=== PATIENT | female | born 1985 | race Caucasian/White ===

== ENCOUNTER → 2021-01-09 08:52 | Outpatient (CLI) | payer MEDICAID, SELFPAY ==
--- NOTE | 2021-01-09 09:20 | RAD_ITS ---
STUDY: X-RAY - LUMBAR SPINE REASON FOR EXAM: Female, 36 years old. BACK PAIN TECHNIQUE: 2 view(s) of the lumbar spine were obtained. COMPARISON: None FINDINGS: Normal lumbar lordosis. There is a minimal levoscoliosis of the lumbar spine. There is a normal alignment of the vertebrae. Normal vertebral bodies and endplates. Normal disc space heights. The soft tissue structures are unremarkable. RAD/Lumbar Spine 2 or 3 Views IMPRESSION: Minimal levoscoliosis. Electronically Signed: Michael Adame MD at 15:02 EDT , Service support ,
[2021-01-09 11:54] LABS: Absolute Lymphocyte Count 2.21 X10^3/uL (0.83-4.51); Absolute Neutrophil Count 3.7 X10^3/uL (2.0-7.7); Basophil# 0.04 X10^3/uL; Basophil% 0.6 % (0-1); Eosinophil# 0.11 X10^3/uL; Eosinophils% 1.7 % (0-5); Hematocrit 39.1 % (37-47); Hemoglobin 12.3 g/dL (12.0-15.0); Lymphocyte # 2.21 X10^3/ul (0.83-4.51); Lymphocyte % 33.7 % (19-41); Mean Corp Hgb Conc 31.5 g/dL (32-36); Mean Corpuscular Hgb 31.3 pg (27.0-32.0); Mean Corpuscular Volume 99.5 fL (81-99); Mean Platelet Vol. 10.1 fl (6.2-12.0); Monocyte# 0.52 X10^3/uL; Monocyte% 7.9 % (0-10); NRBC Flagged by Analyzer 0 % (0-5); Neutrophil # 3.65 X10^3/uL (2.7-7.7); Neutrophil % 55.8 % (47-70); Platelet Count 269 K/mm3 (150-450); RBC Distribution Width CV 13.1 % (11.6-14.6); RBC Distribution Width SD 48.6 fl (35.1-43.9); Red Blood Count 3.93 M/mm3 (4.2-5.4); White Blood Count 6.6 K/mm3 (4.4-11.0)
[2021-01-09 12:38] LABS: AST(SGOT) 16 U/L (15-37); Alanine Aminotransfer ALT/SGPT 18 U/L (13-56); Albumin, Serum 3.8 g/dL (3.2-5.0); Alkaline Phosphatase 42 U/L (45-117); Anion Gap 6 (5-15); BUN 19 mg/dL (7-18); BUN/Creat Ratio 18.3 RATIO (10-20); Calcium,Total 9.3 mg/dL (8.5-10.1); Chloride 107 mmol/L (98-107); Cholesterol 228 mg/dL (200); Creatinine, Serum 1.04 mg/dL (0.55-1.02); EST Glomerular Filtration Rate 63 mL/min (>60); Est Glom Filt Rate - Afr Amer 76 mL/min (>60); Glucose 53 mg/dL (74-106); High Density Lipoprotein 71 mg/dL; Potassium 3.5 mmol/L (3.5-5.1); Protein, Total 7.8 g/dL (6.4-8.2); Sodium Level 142 mmol/L (136-145); Triglycerides 108 mg/dL; Very Low Density Lipoprotein 22 mg/dL (5-40)
== END ==
PROVIDERS: PCP Internal Medicine; Referring Provider Internal Medicine; Visit Provider Internal Medicine
DX: E03.9 Hypothyroidism, unspecified (principal); G89.29 Other chronic pain; M54.5 Low back pain
CPT/HCPCS: 36415; 72100; 80053; 80061; 84443; 85025

== ENCOUNTER 2021-02-03 22:10 | Emergency (ER) | payer MEDICAID, SELFPAY ==
[2021-02-03 22:10] VITALS: BP 138/73; PULSE 69; RESP 16; TEMP 36.7; O2SAT 100; BMI 36.1
[2021-02-04 00:48] LABS: Mucous, Urine 0 SEEN /hpf (<or=2+)
[2021-02-04 01:00] LABS: Color, Urine Yellow (Yellow); Glucose, Dipstick Normal (Normal); Ketone-Dipstick Negative (Negative); Leukocyte Esterase-Dipstick 25 /ul (Negative); Nitrite-Dipstick Negative (Negative); Occult Blood-Urine 25 /ul (Negative); Protein-Dipstick Negative (Negative); Urine Bilirubin Dipstick Negative (Negative); Urine Clarity Clear (Clear); Urine Urobilinogen Normal (Normal)
[2021-02-04 01:07] LABS: Bacteria 1+ /hpf (None Seen); Red Blood Cells-Urine 0-5 SEEN /hpf (0-5); Squamous Epithelial Cells - UA 0-5 SEEN /hpf (5-10); White Blood Cells 0-5 SEEN /hpf (0-5)
[2021-02-04 01:40] VITALS: RESP 16
--- NOTE | 2021-02-04 06:27 | EDS_ITS ---
HPI HPI - Female History of Present Illness Chief Complaint: Vag Bleeding Informant: patient Pain Pain: Negative for Pelvic Pain Bleeding Issue: Positive for Vaginal bleeding Onset: Today Narrative Narrative: Patient presents due to concern for vaginal bleeding. Patient states when she got home from work today she noted some blood in her underwear and believes it was coming from her vaginal area. She had a hysterectomy performed 4 years ago. She denies any dysuria or obvious hematuria. No rectal pain or previous hemorrhoids. Patient does state that she has not had a pelvic examination performed since she had her hysterectomy. PFSH PFSH Medical History Chronic back pain Hypothyroidism Home Medications levothyroxine 125 mcg capsule 125 mcg PO DAILY 01/09/21 [History Last Taken Unknown] Allergy/AdvReac Type Severity Reaction Status Date / Time cortisone Allergy Mild Hives Verified 02/03/21 22:10 Family History Other Diabetes Heart disease Hypertension Surgical History H/O: hysterectomy Social History Smoking Status: Current some day smoker tobacco type: cigarettes alcohol intake: current alcohol intake frequency: holidays/special occasions only substance use type: does not use ROS ROS ED Constitutional Constitutional ED: Denies chills or fever(s) Eyes Eyes: Denies change in vision ENT ENT ED: Denies sore throat Cardiovascular Cardiovascular: Denies chest pain Respiratory/Chest Respiratory/Chest: Denies cough or dyspnea Gastrointestinal Gastrointestinal: Denies abdominal pain, diarrhea, nausea or vomiting Genitourinary Genitourinary ED: Denies dysuria Musculoskeletal Musculoskeletal: Denies back pain Integumentary Denies rash Neurologic Neurologic: Denies headache(s) or weakness Psychiatric Psychiatric: Denies anxiety or depression Endocrine Endocrinology: Denies polydipsia or polyuria Allergic/Immunologic Allergic/Immunologic ED: Denies urticaria EXAM Physical Exam Const Vital Signs: 02/03/21 22:10 02/04/21 01:40 Temperature 98.0 F Temperature Source Temporal Pulse Rate 69 Respiratory Rate 16 16 Blood Pressure 138/73 H Blood Pressure Mean 94 Pulse Ox 100 Oxygen Delivery Method Room Air Positive well nourished and well developed General Appearance ED: well developed HEENT Reports normocephalic and head/scalp atraumatic Eyes PERRL and EOMs intact bilaterally Neck supple Chest Wall inspection of chest normal and palpation of chest normal Resp normal respiratory effort and clear to auscultation bilaterally Cardio regular rate and regular rhythm GI normal to inspection, nondistended, normoactive bowel sounds Palpation: soft Narrative: No external vaginal lesions noted. Speculum examination reveals no lesions in the vagina. No evidence of blood. No evidence of hemorrhoids or blood around the rectum. Back/Spine no CVA tenderness Extremity normal to inspection Neuro oriented x3 and no sensory deficits noted Sensorium / Orientation: alert Motor Exam: strength 5/5 throughout Psych mental status grossly normal Skin no rashes or lesions noted MDM MDM MDM Narrative Medical decision making narrative: Urinalysis is obtained. Lab Data Labs: Laboratory Results - last 24 hr 02/03/21 00:40 Urine Color Yellow Urine Clarity Clear Urine pH 6.0 Ur Specific [place] 1.020 Urine Protein Negative Urine Glucose (UA) Normal Urine Ketones Negative Urine Occult Blood 25 H Urine Nitrite Negative Urine Bilirubin Negative Urine Urobilinogen Normal Ur Leukocyte Esterase 25 H Urine RBC 0-5 SEEN Urine WBC 0-5 SEEN Ur Squamous Epith Cells 0-5 SEEN Urine Bacteria 1+ Urine Mucus 0 SEEN Treatment and Re-Evaluation Comments:: Pelvic examination does not reveal evidence of bleeding at this time. Urinalysis reveals no obvious blood. Patient is referred to PHYSICAL SCIENCES INSTRUCTOR for follow-up. Discharge Plan Triage Chief Complaint: Vag Bleeding ED Provider: Ina Echols Dx/Rx/DC Orders Clinical Impression: No problem, feared complaint unfounded, Vaginal bleeding Prescriptions: No Action levothyroxine 125 mcg capsule 125 mcg PO DAILY RF: 0 Primary Care Provider: Sissy Garcia Referrals: Cherry Torres MD [STAFF PHYSICIAN] - As Needed Sissy Garcia MD [Primary Care Provider] - Activity Restrictions/Additional Instructions: As discussed, on examination there is no obvious source of bleeding. I do recommend following up with a PHYSICAL SCIENCES INSTRUCTOR for evaluation. Please monitor your symptoms and return for worsened symptoms or concerns. Disposition Disposition: Home, Self Care Discharge Date/Time: 02/04/21 01:40
== END 2021-02-04 01:40 | disposition home or self-care (01) ==
PROVIDERS: Emergency Provider Emergency Medicine; PCP Internal Medicine
DX: N93.9 Abnormal uterine and vaginal bleeding, unspecified (principal); E03.9 Hypothyroidism, unspecified; F17.210 Nicotine dependence, cigarettes, uncomplicated; Z79.899 Other long term (current) drug therapy
CPT/HCPCS: 81001; 99282

== ENCOUNTER 2021-03-09 07:00 | Outpatient (RCR) | payer MEDICAID, SELFPAY ==
--- NOTE | 2021-01-19 12:42 | HP.PTEVAL ---
Patient's Visit Information SAUL COKER is a 36 year old F referred to Physical Therapy by Dr. Sissy Garcia MD with a diagnosis of DORSALGIA,CHRONIC PAIN. Date of Evaluation: 01/18/21 Physical Therapist: Virgilio Frias, PT, Cert MDT, OCS - Visit Plan Frequency: 2x /Week Duration: 4 Weeks Plan: PT INTERVETIONS DLS,POSTURAL EX'S ,LUIS ALBERTO EX'S AND MODALTIES NEEDED ,PATIENT EDEUCATION WITH POSTURE AND BODY MCHANICS - Subjective This 36 y/o female presents to physical therapy with back pain. Patient has had lumbar pain several years but has worsen past several months. Patient noticed increase lumbar pain symmetrical R > L described as ache/sharp. Seen DR did x-rays -. Recommended PT. Aggravating factors work demands bending ,lifting ,standing with job demands. Alleviating factors rest. Denies parathesia/tinglng. Coughing/sneezing-. Bowel/bladder -. Patient pain affects sleeping. Patient pain affects job demands and ADL'S . Patient has no trauma/accidents. Patient goal to decrease back pain. SOCIAL: single. VOCATION: [employer] - Pain Bilateral Back Pain Intensity (Out of 10): 10 Pain Intensity Range: 10 Comment: worst with activity - Objective POSTURE: mild forward posture. GAIT: reciprocal pattern. PALPATION: unremarkable. SYMMTRIES: align. FLEXABLITY: hams mild tight. MMT: quads/hams 4/5,hip flexion 4-/5,ankle 4/5. LUMBAR ROM: flexion WFL, extension min loss ,side glides min loss - Special Tests L/S Slump test left side: Negative L/S Slump test right side: Negative L/S Left Straight Leg Raise: Negative L/S Right Straight Leg Raise: Negative Lumbar Standing: Flexion - Mechanical Response: No effect Lumbar Standing: Flexion - Symptoms During Testing: Increases Lumbar Standing: Flexion - Symptoms After Testing: No worse Lumbar Standing: Extension - Mechanical Response: No effect Lumbar Standing: Extension - Symptoms During Testing: Increases Lumbar Standing: Extension - Symptoms After Testing: No worse Lumbar Standing: Right Side Glides - Mechanical Response: No effect Lumbar Standing: Right Side [place] - Symptoms During Testing: No effect Lumbar Standing: Right Side [place] - Symptoms After Testing: No effect Lumbar Standing: Left Side [place] - Mechanical Response: No effect Lumbar Standing: Left Side [place] - Symptoms During Testing: No effect Lumbar Standing: Left Side [place] - Symptoms After Testing: No effect Lumbar Lying: Flexion - Mechanical Response: No effect Lumbar Lying: Flexion - Symptoms During Testing: No effect Lumbar Lying: Flexion - Symptoms After Testing: No effect Lumbar Lying: Extension - Mechanical Response: No effect Lumbar Lying: Extension - Symptoms During Testing: Increases Lumbar Lying: Extension - Symptoms After Testing: No worse - Goals Goal 1:: I with HEP Goal Time Frame: 4-6 Weeks Goal 2:: Improve posture/body mechanics for job demands Goal Time Frame: 4-6 Weeks Goal 3:: Decrease pain in right lumbar by 50% or > to improve function and ADLS Goal Time Frame: 4-6 Weeks Goal 4:: Patient improve lumbar ROM for function of reovery Goal Time Frame: 4-6 Weeks Goal 5:: Patient to increase back owestry by 5 point > to improve QOL and RTW. Goal Time Frame: 4-6 Weeks - Rehabilitation Potential Physical Therapy Diagnosis: This patient has right lumbar pain with possible derangement worse with test movement ,and job demands and faulty body mechanics thus benefit skilled PT Rehabilitation Potential: Good - Anticipated Interventions Patient/Client Instruction: Educate patient on: Condition, Plan of Care For the Purpose of:: To decrease pain, To increase ROM, To improve muscle performance and motor function, To improve ability to perform ADL's, To increase tolerance to activity/condition/position, To improve ability of physical actions for home/community/work/leisure, To improve health of tissue, To decrease soft tissue restriction, To increase flexibility/ROM, To reduce risk of recurrence, To improve health and function, To improve ability to perform tasks related to life management Therapeutic Exercise to Include: Strength training, Postural training, Flexibilty training, Passive ROM, Active ROM, Dynamic Lumbar Stabilization, Luis Alberto Exercises For the Purpose of:: To decrease pain, To increase ROM, To improve muscle performance and motor function, To improve ability to perform ADL's, To increase tolerance to activity/condition/position, To improve performance and independence with ADL's, To improve ability of physical actions for home/community/work/leisure, To improve health of tissue, To decrease soft tissue restriction, To increase flexibility/ROM, To improve ability to perform tasks related to life management TENS: Yes IF ES: Yes Cryotherapy (ice pack, ice massage): Yes Thermo therapy (hot pack): Yes Ultrasound (thermal/non thermal): Yes For the Purpose of:: To decrease pain, To improve nutrient delivery to tissue, To increase oxygenation perfusion, To improve gait and locomotor functions, To decrease soft tissue restriction Thank you for the opportunity to evaluate your patient. For Medicare and Medicare HMO plans, please review the plan of care and approve it. It will need to be FAXED BACK to us at [phone] for Medicare purposes. For Medicare only, by signing this I certify the plan of care. Please let me know if there are questions or concerns regarding this plan of care. Physician Signature: Date:
--- NOTE | 2021-05-17 12:11 | HP.PTDCSUM ---
It has been my pleasure to treat SAUL COKER referred by Dr. Sissy Garcia MD, with the diagnosis of DORSALGIA,CHRONIC PAIN for a total of 9 visit(s). Discharge Date: Please see the following information for a summary of their discharge status. Subjective: Patient reports pain is not much better. working 12 hrs makes symptoms worse. RTD Bilateral Back Pain Intensity (Out of 10): 4 % Improvement: 30 Objective/Function: POSTURE: WFL. GAIT : RECIPROCAL PATTERN. PLAPATION: TENDER RIGHT LS. SYMMTRIES: ALIGN. MMT: QUADS/HAMS 4/5,HIP FLEXION 4-/5,ANKLE 5/5. LUMBAR ROM: FLEXION WFL,EXTENSION MIN/MOD LOSS ,SIDE GLIDES Goal 1:: I with HEP Goal 2:: Improve posture/body mechanics for job demands Goal 3:: Decrease pain in right lumbar by 50% or > to improve function and ADLS Goal 4:: Patient improve lumbar ROM for function of reovery Goal 5:: Patient to increase back owestry by 5 point > to improve QOL and RTW. Plan: RTD. PT INTERVENTIONS DLS,POSTURAL EX'S ,LUIS ALBERTO EX'S AND MODALTIES NEEDED ,PATIENT EDUCATION WITH POSTURE AND BODY MECHANICS If there are questions or concerns regarding this patient's physical therapy, please feel free to call me at [phone]. Thank you for the referral of this patient. Sincerely, Virgilio Frias, PT, Cert MDT, OCS Balance/Gait/Functional tests - Balance/Special Test Scores Oswestry Low Back Score: 21
== END 2021-03-09 19:00 | disposition home or self-care (01) ==
LOC: PT 07:00
PROVIDERS: PCP Internal Medicine; Referring Provider Internal Medicine; Visit Provider Internal Medicine
DX: M54.9 Dorsalgia, unspecified (principal); G89.29 Other chronic pain
CPT/HCPCS: 97014; 97110; 97162; 97530; G0283

== ENCOUNTER → 2021-04-24 10:13 | Outpatient (CLI) | payer MEDICAID, SELFPAY | PROVIDERS: PCP Internal Medicine; Referring Provider Internal Medicine; Visit Provider Internal Medicine | DX: E03.9 Hypothyroidism, unspecified (principal) | CPT/HCPCS: 36415; 84443 ==

== ENCOUNTER → 2021-05-16 06:27 | Outpatient (CLI) | payer MEDICAID, SELFPAY ==
--- NOTE | 2021-05-16 06:28 | MRI_ITS ---
STUDY: MRI LUMBAR SPINE WITHOUT CONTRAST REASON FOR EXAM: Female, 36 years old. Chronic Back Pain TECHNIQUE: Standardized fat and water weighted pulse sequences were obtained in the sagittal and axial planes. COMPARISON: None FINDINGS: T12-L1: Normal endplates. Normal disc height, hydration and morphology. Normal bilateral facet joints. Normal central canal and bilateral lateral recesses. Normal bilateral intervertebral neural foramina. Normal lumbar lordosis. Mild levoscoliosis centered at L3. Normal conus medullaris that terminates at the T12/L1. L1-2: Mild bilateral facet hypertrophy with fluid in the facet joints consistent with instability and mild ligament flavum hypertrophy. 2 mm retrolisthesis of L1 on L2 with a mild bilobed disc protrusion produces moderate spinal stenosis with mild bilateral neural foraminal stenosis. L2-3: Normal endplates. Normal disc height, hydration and morphology. Normal bilateral facet joints. Normal central canal and bilateral lateral recesses. Normal bilateral intervertebral neural foramina. L3-4: Mild disc desiccation but no disc protrusion, spinal stenosis, or neural foraminal stenosis. L4-5: Normal endplates. Normal disc height, hydration and morphology. Normal bilateral facet joints. Normal central canal and bilateral lateral recesses. Normal bilateral intervertebral neural foramina. L5-S1: Mild broad disc protrusion produces mild spinal stenosis and mild bilateral neural foraminal stenosis. Normal visualized sacral ala. Normal visualized paraspinous soft tissue structures. MRI/Spine Lumbar (Routine) IMPRESSION: Mild levoscoliosis and degenerative disc disease as described above. Electronically Signed: Bala Cook MD at 13:49 EDT Tel , Service support ,
== END ==
PROVIDERS: PCP Internal Medicine; Referring Provider Internal Medicine; Visit Provider Internal Medicine
DX: M54.9 Dorsalgia, unspecified (principal); G89.29 Other chronic pain
CPT/HCPCS: 72148

== ENCOUNTER 2021-06-21 08:54 | Outpatient (RCR) | payer MEDICAID, SELFPAY ==
--- NOTE | 2021-06-27 16:08 | HP.FCE ---
Floor (Occasional 1-33% of Day): 35# Floor (Frequent 34-66% of Day): 18# Floor (Constant 67-100% of Day): 7# Floor PDL: Light-Medium Knee (Occasional 1-33% of Day): 35# Knee (Frequent 34-66% of Day): 18# Knee (Constant 67-100% of Day): 7# Knee PDL: Light-Medium Waist (Occasional 1-33% of Day): 30 Waist (Frequent 34-66% of Day): 15# Waist (Constant 67-100% of Day): NA Waist PDL: Light Shoulder (Occasional 1-33% of Day): 30# Shoulder (Frequent 34-66% of Day): 15# Shoulder (Constant 67-100% of Day): NA Shoulder PDL: Light Overhead (Occasional 1-33% of Day): 15# Overhead (Frequent 34-66% of Day): 8# Overhead (Constant 67-100% of Day): NA Overhead PDL: Sedentary-Light Bending: Frequent Ability (34-66% of day) Squatting: Frequent Ability (34-66% of day) Comments: with use of external support Kneeling: Occasional Ability (1-33% of day) Comments: with external support Reaching out: Frequent Ability (34-66% of day) Reaching up: Frequent Ability (34-66% of day) Sitting: Frequent Ability (34-66% of day) Walking: Frequent Ability (34-66% of day) Standing: Frequent Ability (34-66% of day) Duration Sedentary Sedentary Light Light Light Medium Medium Medium Heavy Very Heavy Heavy Occasional (0-33% of day) Frequent (34-66% of day) Constant (67-100% of day) 10 # Negligible Negligible 15 # 8 # Negligible 20 # 10# Negli. 35 # 18 # 7 # 50 # 25 # 10 # 75 # 100 # >100 # 38 # 50 # >50 # 15 # 20 # >20 # Weight:: 93.894 kg Hand Dominance: Left Medical History Including Restrictions: pt states she was in good health until 2019 pt states she went to see and pt had MRI. PT states she did have 13 Physical therapy but was not successful in decreasing her pain. Pt states she was advised by her pain mtg. Dr. Marcus to stop the therapy. Pt states she has had one pain injection about two weeks ago. pt states she feels the injection did help about 60%. pt does not exercise on a regular basis. Pt states she does smoke cirgrets the last 4-5 years. pt states she has been taking thyroid medication since 2009 but unaware of what dx. Diagnoses: Back pain dx. Leg pain. right CTS Symptoms: Back pain. right leg pain. right hip pain. throbbing. tingling right hand Pain: pt states current pain level is 6-7/10. pt does not take pain medication for her back. Work History: This 36 year old female states she has worked on and off for [employer] for about 6 years. pt states she quit her job in Apr and returned to position February 2020. 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 she is unsure of lifting requirement in her job description. pt states she is here to get lifting restrictions so she can continue working. Behavioral: pt cooperative throughout session. ADLS: Pt states she lives in a town house it has 14 steps to get to bathroom and bedroom. Pt states two hand rails. pt has tub shower states she is ind. with bathing and dressing. pt states she does the laundry and cleaning and grocery shopping. pt drives IND. pt states she can perform daily tasks as needed. ROM: No noted limited ROM of cervical, lumbar, UE or LE noted at this assessment. Strength: pt demo with MMT of BUE at 4+/5 and LE MMT 4+/5 grossly throughout. Right Industrial Refrigeration Mechanic Strength Average: 60.00 Right Industrial Refrigeration Mechanic Strength Percentile: 19% Left Industrial Refrigeration Mechanic Strength Average: 46.66 Left Industrial Refrigeration Mechanic Strength Percentile: 11% Right Lateral Pinch Average: 15.33 Right Lateral Pinch Percentile: 75% Left Lateral Pinch Average: 12.66 Left Lateral Pinch Percentile: 50% Right Tripod Pinch Average: 12.00 Right Tripod Pinch Percentile: 25% Left Tripod Pinch Average: 12.00 Left Tripod Pinch Percentile: 50% Comments: resting heart rate 71 Sensation: reports tingling and numbness at times in her. bilateral hands testing at. 2.83 = normal sensation Fine Motor: denies issues Balance: pt demo good balance throughout assessment. Bending: pt demonstrated the ability to bend forward 3/3x, and 10/10x heart rate 90 and 10/10 rapidly with external support. pts heart rate 98. pt can bend forward on a frequent ability. Squatting: pt demo the ability to sqat 3/3x and 10/10 with use of external support and heart rate at 94. pt complete 10/10 rapidly with use of external support. heart rate 108 with external support- pt pain at right low back to hip 8/10. pt can squat on a frequent ability. Kneeling: pt demo the ability to kneel 3/3x with external support. 10/10x with external support- pt SOB with tasks and heart rate 121. pt reported right low back, right hip and right thigh pain at 8/10. pt can kneel on occasional ability with use of external support. Reaching out/up: pt demo the ability to reach out/up 3/3x, 10/10, and heart rate 82 pt completed 10/10 rapidly heart rate 80.pt reported back and right hip pain at 7/10. pt completed this portion while sitting. pt can reach out/up on frequent ability. pt sat for this portion because kneeling was completed before- pts back pain was reported 8/10 prior to sitting. Walking: pt demonstrated the ability to ambulate for 15min with a antalgic gait pattern. pts bertha was appropriate speed. pt can ambulate on frequent ability. Standing: pt demonstrated the ability to stand for 8 min shifting body wt. pt can stand on a frequent ability. Sitting: pt demo the ability to sit for 40 min with no expressed or apparent discomfort. pt can sit on a frequent ability. Climbing Stairs: pt demonstrated the ability to ascend and descend ten steps with a reciprocal step pattern and use of one hand rail with good ability. Floor Lift: Pt demonstrated the ability to lift 35# maximally from this level. Pt used poor lifting mechanics and had increase back pain. Therapist advised on proper lift mechanics and pt reported lifting with legs was better. Knee Lift: pt demonstrated the ability to lift 35# maximally from this level with fair lifting mechanics. Waist Lift: pt demonstrated the ability to lift 30# maximally from this level with good lift mechanics. Shoulder Lift: pt demonstrated the ability to lift 30# maximally from this level with good lift mechanics. Overhead Lift: pt demonstrated the ability to lift 15# maximally from this level with good lift mechanics. Carrying: pt demonstrated the ability to carry 30# with good ability and mechanics for 35 feet. Comments: 94 heart rate
--- NOTE | 2021-06-27 16:08 | HP.OTFCE.D ---
FCE D/C Summary - Discharge SAUL COKER was seen for a one time visit for an FCE on 06/21/21 and is discharged.
== END 2021-06-21 19:00 | disposition home or self-care (01) ==
LOC: OT 08:54
PROVIDERS: PCP Internal Medicine; Referring Provider Anesthesiology Pain Medicine; Visit Provider Anesthesiology Pain Medicine
DX: M54.9 Dorsalgia, unspecified (principal); M79.606 Pain in leg, unspecified
CPT/HCPCS: 97750

== ENCOUNTER → 2021-07-19 14:45 | Outpatient (CLI) | payer MEDICAID, SELFPAY | PROVIDERS: PCP Internal Medicine; Visit Provider Internal Medicine | DX: E03.9 Hypothyroidism, unspecified (principal) | CPT/HCPCS: 36415; 84443 ==

== ENCOUNTER 2021-08-22 11:32 | Outpatient (CLI) | payer MEDICAID, SELFPAY ==
[2021-08-22 13:08] LABS: Thyroid Stim Hormone (TSH) 2.61 uIU/mL (0.358-3.74)
== END 2021-08-22 23:59 | disposition short-term general hospital (02) ==
PROVIDERS: PCP Internal Medicine; Referring Provider Internal Medicine; Visit Provider Internal Medicine
DX: E03.9 Hypothyroidism, unspecified (principal)
CPT/HCPCS: 36415; 84443

== ENCOUNTER 2021-10-16 10:35 | Outpatient (CLI) | payer MEDICAID, SELFPAY ==
--- NOTE | 2021-10-16 10:40 | RAD_ITS ---
STUDY: X-RAY - RIGHT KNEE REASON FOR EXAM: Female, 36 years old. Fall. Pain. TECHNIQUE: 4 view(s) of the knee. COMPARISON: None. FINDINGS: Normal visualized distal femur. Normal visualized proximal tibia and fibula. Normal proximal tibiofibular articulation. Normal medial femorotibial compartment. Normal lateral femorotibial compartment. Lateral tilt and subluxation of the patella sunrise view. The soft tissue structures are unremarkable. RAD/Knee 4 or More Views IMPRESSION: Lateral tilt and subluxation of the patella. No acute abnormality, chondrocalcinosis, erosive changes or periostitis. Electronically Signed: Maninder Verma MD at 13:10 EDT ,
== END 2021-10-16 23:59 | disposition home or self-care (01) ==
LOC: RAD 10:38
PROVIDERS: PCP Internal Medicine; Referring Provider Anesthesiology Pain Medicine; Visit Provider Anesthesiology Pain Medicine
DX: M25.561 Pain in right knee (principal)
CPT/HCPCS: 73564

== ENCOUNTER → 2022-01-16 | Outpatient (CLI) | payer MEDICAID, SELFPAY ==
[2022-01-16 15:03] LABS: Absolute Lymphocyte Count 2.09 X10^3/uL (0.83-4.51); Absolute Neutrophil Count 5.8 X10^3/uL (2.0-7.7); Basophil# 0.04 X10^3/uL; Basophil% 0.5 % (0-1); Eosinophil# 0.03 X10^3/uL; Eosinophils% 0.4 % (0-5); Hematocrit 38.2 % (37-47); Hemoglobin 12.3 g/dL (12.0-15.0); Lymphocyte # 2.09 X10^3/ul (0.83-4.51); Lymphocyte % 24.5 % (19-41); Mean Corp Hgb Conc 32.2 g/dL (32-36); Mean Corpuscular Hgb 31.1 pg (27.0-32.0); Mean Corpuscular Volume 96.5 fL (81-99); Mean Platelet Vol. 9.9 fl (6.2-12.0); Monocyte# 0.58 X10^3/uL; Monocyte% 6.8 % (0-10); NRBC Flagged by Analyzer 0 % (0-5); Neutrophil # 5.76 X10^3/uL (2.7-7.7); Neutrophil % 67.6 % (47-70); Platelet Count 291 K/mm3 (150-450); RBC Distribution Width CV 12.8 % (11.6-14.6); RBC Distribution Width SD 45.1 fl (35.1-43.9); Red Blood Count 3.96 M/mm3 (4.2-5.4); White Blood Count 8.5 K/mm3 (4.4-11.0)
[2022-01-16 15:53] LABS: ALB/GLOB Ratio 1.1 RATIO (0.9-2.4); AST(SGOT) 9 U/L (15-37); Alanine Aminotransfer ALT/SGPT 12 U/L (13-56); Albumin, Serum 3.7 g/dL (3.2-5.0); Alkaline Phosphatase 41 U/L (45-117); Anion Gap 3 (5-15); BUN 12 mg/dL (7-18); BUN/Creat Ratio 13.9 RATIO (10-20); Calcium,Total 9.5 mg/dL (8.5-10.1); Chloride 108 mmol/L (98-107); Cholesterol 178 mg/dL (200); Creatinine, Serum 0.87 mg/dL (0.55-1.02); EST Glomerular Filtration Rate 77 mL/min (>60); Est Glom Filt Rate - Afr Amer 94 mL/min (>60); Globulin 3.5 g/dL (2.2-4.2); Glucose 88 mg/dL (74-106); High Density Lipoprotein 57 mg/dL; Potassium 3.4 mmol/L (3.5-5.1); Protein, Total 7.2 g/dL (6.4-8.2); Sodium Level 142 mmol/L (136-145); Thyroid Stim Hormone (TSH) 6.65 uIU/mL (0.358-3.74); Triglycerides 93 mg/dL; Very Low Density Lipoprotein 19 mg/dL (5-40)
== END | disposition home or self-care (01) ==
LOC: BIMLAB 14:21
PROVIDERS: PCP Internal Medicine; Referring Provider Internal Medicine; Visit Provider Internal Medicine
DX: E03.9 Hypothyroidism, unspecified (principal)
CPT/HCPCS: 36415; 80053; 80061; 84443; 85025

== ENCOUNTER 2022-02-25 08:00 | Outpatient (RCR) | payer MEDICAID, SELFPAY ==
--- NOTE | 2022-01-16 10:03 | HP.PTEVAL_ITS ---
Patient's Visit Information SAUL COKER is a 37 year old F referred to Physical Therapy by DENTON Francisco with a diagnosis of PF Syndrome- Right Knee Pain. Date of Evaluation: 01/16/22 Physical Therapist: Concha Schultz DPT - Visit Plan Frequency: 2x /Week Duration: 4 Weeks Plan: Focus on LE and core strength/stabilization- caution pt has back pain- GENTLE. HEP Given IE: Quad set, SLR, hamstring flossing, hip adduction, clams, bridge - Subjective Patient reports that she has right knee pain since the beginning of the year- insidious onset. The pain comes and goes- depending on what she is doing. Work: [employer]- works 10-14 hour days so she is moving around a lot. She is standing for most of the day- if she has back pain she can sit down. Pain in the knee is located along the whole anterior knee. Worst: over 10/10. Agg: standing, not exactly sure. Eases: sitting down. Best: 0/10. Describes the pain as sharp. Her whole right side bothers her from DDD. She sees Dr. Marcus for back pain- did PT for her back last year which did not help. Injections do help (End of December). She has no knee pain currently- she had a day off work yesterday so she was able to relax- she is off work again today. Sees today. Sleep: disturbed- could be from her back or her knee. X-ray- negative for fracture- No MRI currently. No injections in the knee. No N/T in the toes. Exercise- walk around at the park. Lifting restriction at work #30. PMHx/Meds: no changes since ortho visit. - Objective Posture: fair- mild FH, RS- can correct but does not maintain. Gait: no deviation noted HR/TR: able with UE A Stairs: asc/desc 8 recip with 1 HR- fair control. SLS: 10 sec without LOB- moderate pes planus. Palpation: tender along distal patella, medial joint line, ROM: Core: WFL, Hip: WFL, Knee: 0-125. Ankle: WFL. Strength: Core: fair minus Hip: flexion/abd: 4/5, Extn: 4+/5, Add: 4+/5, IR/ER: 4/5, Knee: Flexion- 4+/5, Extn: 4+/5 Flex: HS: severe, Gastroc: Severe. Sensation: WFL. Reflex: Patellar: WFL - Special Tests R Knee Brianna - Meniscus: Negative R Knee Valgus - MCL: Positive R Knee Varus - LCL: Positive R Knee Patellar Grind - PFS: Positive - Balance/Special Test Scores Lower Extremity Functional Score: 53 - Goals Goal 1:: Patient will be I with HEP and progression Goal Time Frame: 4-6 Weeks Goal 2:: Patient will maintain proper posture t/o tx session to demo increased core s/s Goal Time Frame: 4-6 Weeks Goal 3:: Patient will squat with normal mechanics Goal Time Frame: 4-6 Weeks Goal 4:: Patient will report 80% improvement Goal Time Frame: 4-6 Weeks - Rehabilitation Potential Physical Therapy Diagnosis: Patient presents with hypomobility- she has decreased LE and core strength/stabilization, flex and muscular endurance leading to poor posture and increased pain with ADL's. Rehabilitation Potential: Fair - Anticipated Interventions Patient/Client Instruction: Educate patient on: Benefits of Fitness Program Therapeutic Exercise to Include: Strength training, Endurance training, Balance training, Coordination, Agility training, Body mechanics, Postural training, Flexibilty training, Gait and locomotor training, Neuromotor development, Dynamic Lumbar Stabilization, Scapular Strength/Stabilization For the Purpose of:: To improve muscle performance and motor function TENS: Yes Cryotherapy (ice pack, ice massage): Yes Thermo therapy (hot pack): Yes Ultrasound (thermal/non thermal): Yes For the Purpose of:: To improve muscle performance and motor function Thank you for the opportunity to evaluate your patient. For Medicare and Medicare HMO plans, please review the plan of care and approve it. It will need to be FAXED BACK to us at [phone] for Medicare purposes. For Medicare only, by signing this I certify the plan of care. Please let me know if there are questions or concerns regarding this plan of care. Physician Signature: Date:
--- NOTE | 2022-02-25 08:21 | HP.PTDCSUM ---
It has been my pleasure to treat SAUL COKER referred by DENTON Francisco, with the diagnosis of PF Syndrome- Right Knee Pain for a total of 8 visit(s). Discharge Date: Please see the following information for a summary of their discharge status. Subjective: Patient reports that she thinks the knee is okay, she does not have any pain in the knee- the pain is mostly in the lumbar-she has injections tomorrow. The work is still pretty much the same though. % Improvement: 80 Objective/Function: Posture: fair- mild FH, RS- can correct but does not maintain. Gait: no deviation noted HR/TR: able with UE A Stairs: asc/desc 8 recip with 1 HR- fair control. SLS: 15 sec without LOB- moderate pes planus. Palpation:not tender to touch ROM: Core: WFL, Hip: WFL, Knee: 0-125. Ankle: WFL. Strength: Core: fair Hip: flexion/abd: 4+/5, Extn: 4+/5, Add: 4+/5, IR/ER: 4+/5, Knee: Flexion- 4+/5, Extn: 4+/5 Flex: HS: severe, Gastroc: Severe. Sensation: WFL. Reflex: Patellar: WFL. - Special Tests. R Knee Brianna - Meniscus: Negative. R Knee Valgus - MCL: Positive. R Knee Varus - LCL: Positive. R Knee Patellar Grind - PFS: Positive Goal 1:: Patient will be I with HEP and progression Goal Progress: Goal Met Goal 2:: Patient will maintain proper posture t/o tx session to demo increased core s/s Goal Progress: Goal Met Goal 3:: Patient will squat with normal mechanics Goal Progress: Goal Met Goal 4:: Patient will report 80% improvement Goal Progress: Goal Met Plan: 02/25/22: Discharge to I HEP- gave exercises with print out and BTB and GTB. Focus on LE and core strength/stabilization- caution pt has back pain. *Approval for TE only* If there are questions or concerns regarding this patient's physical therapy, please feel free to call me at [phone]. Thank you for the referral of this patient. Sincerely, Concha Schultz, DPT Balance/Gait/Functional tests - Balance/Special Test Scores Lower Extremity Functional Score: 73
== END 2022-02-25 09:57 | disposition home or self-care (01) ==
LOC: PT 08:00
PROVIDERS: PCP Internal Medicine; Referring Provider Physician Assistant; Visit Provider Physician Assistant
DX: M22.2X1 Patellofemoral disorders, right knee (principal)
CPT/HCPCS: 97110; 97162; 97164

== ENCOUNTER → 2022-02-26 | Outpatient (CLI) | payer MEDICAID, SELFPAY ==
[2022-02-26 13:04] LABS: Thyroid Stim Hormone (TSH) 0.07 uIU/mL (0.358-3.74)
== END | disposition home or self-care (01) ==
LOC: BIMLAB 09:21
PROVIDERS: PCP Internal Medicine; Referring Provider Internal Medicine; Visit Provider Internal Medicine
DX: E03.9 Hypothyroidism, unspecified (principal)
CPT/HCPCS: 36415; 84443

== ENCOUNTER → 2022-04-23 | Outpatient (CLI) | payer MEDICAID, SELFPAY ==
[2022-04-23 12:43] LABS: Thyroid Stim Hormone (TSH) 0.01 uIU/mL (0.358-3.74)
== END | disposition home or self-care (01) ==
LOC: BIMLAB 08:21
PROVIDERS: Physician Assistant; PCP Internal Medicine; Visit Provider Internal Medicine
DX: E03.9 Hypothyroidism, unspecified (principal)
CPT/HCPCS: 36415; 84443

== ENCOUNTER → 2022-05-29 | Outpatient (CLI) | payer MEDICAID, SELFPAY ==
[2022-05-29 12:34] LABS: Thyroid Stim Hormone (TSH) 0.04 uIU/mL (0.358-3.74)
== END | disposition home or self-care (01) ==
LOC: BIMLAB 08:24
PROVIDERS: PCP Internal Medicine; Referring Provider Physician Assistant; Visit Provider Physician Assistant
DX: E03.9 Hypothyroidism, unspecified (principal)
CPT/HCPCS: 36415; 84443

== ENCOUNTER → 2022-07-10 | Outpatient (CLI) | payer MEDICAID, SELFPAY ==
[2022-07-10 12:43] LABS: Thyroid Stim Hormone (TSH) 0.07 uIU/mL (0.358-3.74)
== END | disposition home or self-care (01) ==
LOC: BIMLAB 08:09
PROVIDERS: PCP Physician Assistant; Referring Provider Physician Assistant; Visit Provider Physician Assistant
DX: E03.9 Hypothyroidism, unspecified (principal)
CPT/HCPCS: 36415; 84443

== ENCOUNTER → 2022-07-24 | Outpatient (CLI) | payer MEDICAID, SELFPAY ==
[2022-07-24 15:32] LABS: Absolute Lymphocyte Count 2.18 X10^3/uL (0.83-4.51); Absolute Neutrophil Count 3.5 X10^3/uL (2.0-7.7); Basophil# 0.04 X10^3/uL; Basophil% 0.6 % (0-1); Eosinophil# 0.06 X10^3/uL; Hemoglobin 13.2 g/dL (12.0-15.0); Lymphocyte # 2.18 X10^3/ul (0.83-4.51); Mean Corpuscular Hgb 30.7 pg (27.0-32.0); Mean Platelet Vol. 10.1 fl (6.2-12.0); Monocyte# 0.47 X10^3/uL; Monocyte% 7.6 % (0-10); NRBC Flagged by Analyzer 0 % (0-5); Neutrophil # 3.46 X10^3/uL (2.7-7.7); Neutrophil % 55.6 % (47-70); Platelet Count 287 K/mm3 (150-450); RBC Distribution Width CV 12.6 % (11.6-14.6); RBC Distribution Width SD 43.1 fl (35.1-43.9); White Blood Count 6.2 K/mm3 (4.4-11.0)
[2022-07-24 16:16] LABS: ALB/GLOB Ratio 1.1 RATIO (0.9-2.4); AST(SGOT) 12 U/L (15-37); Alanine Aminotransfer ALT/SGPT 20 U/L (13-56); Albumin, Serum 3.7 g/dL (3.2-5.0); Alkaline Phosphatase 44 U/L (45-117); Anion Gap 7 (5-15); BUN 10 mg/dL (7-18); BUN/Creat Ratio 12.3 RATIO (10-20); Calcium,Total 9.7 mg/dL (8.5-10.1); Chloride 107 mmol/L (98-107); Creatinine, Serum 0.82 mg/dL (0.55-1.02); EST Glomerular Filtration Rate 83 mL/min (>60); Est Glom Filt Rate - Afr Amer 100 mL/min (>60); Globulin 3.4 g/dL (2.2-4.2); Glucose 80 mg/dL (74-106); Potassium 3.8 mmol/L (3.5-5.1); Protein, Total 7.1 g/dL (6.4-8.2); Sodium Level 140 mmol/L (136-145)
== END | disposition home or self-care (01) ==
LOC: BIMLAB 11:26
PROVIDERS: PCP Physician Assistant; Referring Provider Internal Medicine; Visit Provider Internal Medicine
DX: E03.9 Hypothyroidism, unspecified (principal); L30.9 Dermatitis, unspecified
CPT/HCPCS: 36415; 80053; 85025

== ENCOUNTER → 2022-08-06 | Outpatient (CLI) | payer MEDICAID, SELFPAY | END | disposition home or self-care (01) | PROVIDERS: PCP Physician Assistant; Visit Provider Internal Medicine | DX: G47.10 Hypersomnia, unspecified (principal) | CPT/HCPCS: 95801; 95806 ==

== ENCOUNTER → 2022-08-07 | Outpatient (CLI) | payer MEDICAID, SELFPAY ==
[2022-08-07 13:21] LABS: Thyroid Stim Hormone (TSH) 2.64 uIU/mL (0.358-3.74)
== END | disposition home or self-care (01) ==
LOC: BIMLAB 08:05
PROVIDERS: PCP Physician Assistant; Referring Provider Physician Assistant; Visit Provider Physician Assistant
DX: E03.9 Hypothyroidism, unspecified (principal)
CPT/HCPCS: 36415; 84443

== ENCOUNTER 2022-10-12 13:41 | Emergency (ER) | payer MEDICAID, SELFPAY ==
[2022-10-12 13:42] VITALS: BP 123/83; PULSE 100; RESP 18; TEMP 36.9; O2SAT 98; BMI 30.2
[2022-10-12 14:07] VITALS: BP 121/89; PULSE 88; RESP 18; O2SAT 100
[2022-10-12] MEDS: Ketorolac 30 MG/ML Syringe IM (14:28)
--- NOTE | 2022-10-12 14:32 | EDS_ITS ---
HPI <AILEEN Cardoso - Last Filed: 10/12/22 15:26> History of Present Illness Chief Complaint: Back Narrative Narrative: Patient is a 37-year-old female she has history of chronic back pain, hypothyroidism who presents to the emergency department for acute on chronic back pain. She receives injections to her lower lumbar spine via pain management by Dr. Marcus, she received an injection 2 days ago however states that she is not getting the relief that she normally gets. She states the pain is worse around her lower back, its worse with any bending or rotation. She is currently at her occupation at a [employer] in [employer] and she was having difficulty performing her job secondary to moving and twisting. She is here for evaluation. She denies any weakness to her lower extremities, denies any bowel or bladder incontinence. She denies any history to surgeries, history of IV drug abuse, no fever or chills. PFSH <AILEEN Cardoso - Last Filed: 10/12/22 15:26> [facility] Medical History Chronic back pain Dermatitis Flu vaccine need Hypersomnolence Hypothyroidism Right shoulder pain Home Medications triamcinolone acetonide 0.1 % topical cream 1 applic topical BID #80 grams 07/19/21 [Rx Last Taken Unknown] baclofen 10 mg tablet 10 mg PO BID PRN muscle spasm #60 tabs 01/16/22 [Rx Last Taken Unknown] nystatin 100,000 unit/gram topical ointment 1 applic topical TID #30 grams 03/19/22 [Rx Last Taken Unknown] levothyroxine 75 mcg tablet 75 mcg PO DAILY #90 tabs 08/16/22 [Rx Last Taken Unknown] naproxen 500 mg tablet (Naprosyn) 500 mg PO BID PRN pain #20 tabs 10/12/22 [Rx Last Taken Unknown] Allergy/AdvReac Type Severity Reaction Status Date / Time cortisone Allergy Mild Hives Verified 09/18/22 10:15 Family History Other Diabetes Heart disease Hypertension Surgical History H/O: hysterectomy Social History household members: none Smoking Status: Former smoker alcohol intake: current alcohol intake frequency: holidays/special occasions only substance use type: does not use ROS <AILEEN Cardoso - Last Filed: 10/12/22 15:26> ROS ED ROS Narrative Constitutional: Negative for fever, chills, weight loss, weakness Eyes: Negative for vision loss, vision change, double vision ENT: Negative for any sore throat, ear pain, congestion Cardiovascular: Negative for any chest pain, tightness, palpitations Respiratory: Negative for any cough, sputum production, hemoptysis, dyspnea, dyspnea on exertion, orthopnea Gastrointestinal: Negative for any abdominal pain, nausea, vomiting, diarrhea, constipation, blood in stool, blood in vomit : Negative for any urinary frequency, dysuria, retention, blood in urine Muscle skeletal: Negative for any muscle joint pain, stiffness, myalgias, arthralgias, neck pain. Positive for lower back pain Neurological: Negative for any headache, syncope, numbness or tingling, dizziness Skin: Negative for any rashes, lumps, itching, abrasions, lacerations Psychiatric: Negative for any depression, anxiety, stress, suicidal ideation, homicidal ideation Hematologic: Negative for any easy bruising, excessive bruising, easy bleeding Allergies: Negative for any eczema, hives, rash EXAM <AILEEN Cardoso - Last Filed: 10/12/22 15:26> Physical Exam Narrative Exam Narrative: Vital signs reviewed. HEET: Head normocephalic atraumatic, TMs clear bilaterally. Posterior pharynx is clear, moist mucous membranes. Nares clear bilaterally. Neck: Supple with no lymphadenopathy or tenderness. No signs of meningismus, negative jolt sign. Cardiac: Regular rate and rhythm no murmurs gallops or rubs, equal peripheral pulses bilaterally. Respiratory: Lungs clear to auscultation bilaterally. No chest tenderness. Abdomen: Soft, nontender, nondistended. No abdominal bruit or pulsatile masses. No hepatosplenomegaly Extremities: No peripheral edema, no signs of gross trauma or deformity. Active full range of motion of all extremities. Patient has equal strength in bilat eral lower extremities. Neurovascularly intact. Equal pulses. Neuro: Cranial nerves II through XII intact, no focal neurological deficits. Patient is ambulatory. Skin: Clean dry and intact with no rash, purpura, petechiae, vesicles or pustules. Backs/flank: No CVA tenderness, no midline spinal tenderness, no deformity. Patient did have some pain on palpation to the lower lumbar spine more on the right. No evidence of any midline spinal tenderness. Psych: Normal mood and affect. No SI, HI or acute psychosis. Const Vital Signs: 10/12/22 13:42 10/12/22 14:07 10/12/22 15:28 Temperature 98.4 F Temperature Source Temporal Pulse Rate 100 88 16 L Respiratory Rate 18 18 Blood Pressure 123/83 H 121/89 H Blood Pressure Mean 96 99 Pulse Ox 98 100 Oxygen Delivery Method Room Air Room Air Positive well nourished and well developed General Appearance ED: well developed <Dr. Pedro Chung DO - Last Filed: 10/12/22 21:18> Physical Exam Const Vital Signs: 10/12/22 13:42 10/12/22 14:07 10/12/22 15:28 Temperature 98.4 F Temperature Source Temporal Pulse Rate 100 88 16 L Respiratory Rate 18 18 Blood Pressure 123/83 H 121/89 H Blood Pressure Mean 96 99 Pulse Ox 98 100 Oxygen Delivery Method Room Air Room Air MDM <AILEEN Cardoso - Last Filed: 10/12/22 15:26> MDM Differential Diagnosis Differential Diagnosis: Spinal abscess Why less likely: Negative for any signs or symptoms of infection. No history of IV drug abuse. Differential Diagnosis: Cauda equina Why less likely: Negative for any bowel or bladder incontinence. Equal strength bilateral lower extremities. Strength 5 out of 5. Patient is able to without any difficulty. Additional Tests and Interventions Diagnositc testing considered but not performed: X-ray of the lower lumbar spine, not completed secondary to negative for midline spinal tenderness, no trauma. Treatment and Re-Evaluation :: Patient appears generally well, patient appears nontoxic, vital signs are stable. [facility] lower back pain. This is acute on chronic problem. Patient's physical examination is consistent with more of a lumbar sprain. Differential diagnosis include spinal abscess, cauda equina however the patient has no physical evidence to suspect these diagnoses. X-ray considered however not completed at this time secondary to no trauma. Patient was given IM dose of Toradol. Patient on reevaluation after the IM Toradol states he feels much better. At this time, I believe the patient stable for discharge. She will be diagnosed with lumbar strain, she will be given naproxen for home. She is also instructed that she can take her muscle relaxer at night if she wishes. She will follow-up with pain management. She is happy with the plan of care. Patient given strict return precaution. Stable for discharge <Dr. Pedro Chung, DO - Last Filed: 10/12/22 21:18> MDM MDM Narrative Medical decision making narrative: Interventions / MDM: Differential diagnosis: Acute on chronic back pain, lumbar strain Diagnosis considered but do not suspect: Cauda equina symptoms however no clinical symptoms of this. Postprocedure complications however denies any worsening symptoms since her procedure. My EKG interpretation: N/A Imaging independently reviewed and interpreted by myself: N/A External documents reviewed: N/A Test considered but not ordered:N/A ED course: Attending note: Patient seen and evaluated with public relations assistant. I perform my own [id number] evaluation. I agree with the plan of work-up. Persistent back pain since yesterday worse with movement. She has had issues similar pains followed by pain management she gets injections every 3 months she is status post injection 2 days ago which did not improve this time. States and pointed lower lumbar sacral region. She cannot tell me exactly what type of injection was performed. No radicular pains down the legs no loss of bowel or bladder control. No fevers. She states she would like anti-inflammatory injections which has helped in the past. Exam no clear puncture wound was seen lower lumbar there is no erythema. No bony tenderness. Patient ambulate with no difficulties. Patient given Toradol injection, monitored improving symptoms. Discharged with outpatient follow-up. Re-evaluation: stable Disposition discussed with patient/family/significant other: Patient Case discussed with consulting clinician: N/A Discharge Plan Triage Chief Complaint: Back ED Midlevel Provider: Soham Joseph ED Provider: Pedro Chung Dx/Rx/DC Orders Clinical Impression: Lumbar spine strain, Back pain, chronic Instructions: ED Back Sprain/Strain Prescriptions: New naproxen [Naprosyn] 500 mg tablet 500 mg PO BID PRN (Reason: pain) Qty: 20 0RF No Action triamcinolone acetonide 0.1 % cream 1 applic topical BID Qty: 80 1RF baclofen 10 mg tablet 10 mg PO BID PRN (Reason: muscle spasm) Qty: 60 1RF nystatin 100,000 unit/gram ointment 1 applic topical TID Qty: 30 1RF levothyroxine 75 mcg tablet 75 mcg PO DAILY Qty: 90 1RF Primary Care Provider: Sissy Garcia Referrals: Sissy Garcia MD [Primary Care Provider] - Activity Restrictions/Additional Instructions: Continue to follow-up outpatient. Disposition Disposition: Home, Self Care Discharge Date/Time: 10/12/22 15:28
[2022-10-12 15:28] VITALS: PULSE 16
== END 2022-10-12 15:28 | disposition home or self-care (01) ==
PROVIDERS: Emergency Provider Emergency Medicine; PCP Internal Medicine; Visit Provider Emergency Medicine
DX: S39.012A Strain of muscle, fascia and tendon of lower back, initial encounter (principal); Z87.891 Personal history of nicotine dependence; E03.9 Hypothyroidism, unspecified; G89.29 Other chronic pain; X58.XXXA Exposure to other specified factors, initial encounter
CPT/HCPCS: 96372; 99282

== ENCOUNTER → 2022-10-15 | Outpatient (CLI) | payer MEDICAID, SELFPAY | END | disposition home or self-care (01) | LOC: SL 20:15 | PROVIDERS: PCP Internal Medicine; Referring Provider Internal Medicine; Visit Provider Internal Medicine | DX: G47.10 Hypersomnia, unspecified (principal) | CPT/HCPCS: 95810 ==

== ENCOUNTER → 2023-01-09 | Outpatient (CLI) | payer MEDICAID, SELFPAY ==
[2023-01-09 16:57] LABS: Absolute Lymphocyte Count 1.61 X10^3/uL (0.83-4.51); Absolute Neutrophil Count 3.3 X10^3/uL (2.0-7.7); Basophil# 0.04 X10^3/uL; Basophil% 0.7 % (0-1); Eosinophil# 0.16 X10^3/uL; Eosinophils% 2.9 % (0-5); Hematocrit 38.1 % (37-47); Hemoglobin 12.4 g/dL (12.0-15.0); Lymphocyte # 1.61 X10^3/ul (0.83-4.51); Lymphocyte % 29.1 % (19-41); Mean Corp Hgb Conc 32.5 g/dL (32-36); Mean Corpuscular Hgb 31.5 pg (27.0-32.0); Mean Corpuscular Volume 96.7 fL (81-99); Mean Platelet Vol. 9.8 fl (6.2-12.0); Monocyte# 0.38 X10^3/uL; Monocyte% 6.9 % (0-10); NRBC Flagged by Analyzer 0 % (0-5); Neutrophil # 3.33 X10^3/uL (2.7-7.7); Neutrophil % 60.2 % (47-70); Platelet Count 227 K/mm3 (150-450); RBC Distribution Width SD 46.3 fl (35.1-43.9); Red Blood Count 3.94 M/mm3 (4.2-5.4); White Blood Count 5.5 K/mm3 (4.4-11.0)
[2023-01-09 17:49] LABS: ALB/GLOB Ratio 1.1 RATIO (0.9-2.4); AST(SGOT) 13 U/L (15-37); Alanine Aminotransfer ALT/SGPT 18 U/L (13-56); Albumin, Serum 3.5 g/dL (3.2-5.0); Alkaline Phosphatase 44 U/L (45-117); Anion Gap 8 (5-15); BUN 12 mg/dL (7-18); BUN/Creat Ratio 13.5 RATIO (10-20); Calcium,Total 9.5 mg/dL (8.5-10.1); Chloride 110 mmol/L (98-107); Cholesterol 217 mg/dL (200); Creatinine, Serum 0.89 mg/dL (0.55-1.02); EST Glomerular Filtration Rate 75 mL/min (>60); Est Glom Filt Rate - Afr Amer 91 mL/min (>60); Globulin 3.3 g/dL (2.2-4.2); Glucose 73 mg/dL (74-106); High Density Lipoprotein 79 mg/dL; Potassium 3.3 mmol/L (3.5-5.1); Protein, Total 6.8 g/dL (6.4-8.2); Sodium Level 142 mmol/L (136-145); Triglycerides 137 mg/dL; Very Low Density Lipoprotein 27 mg/dL (5-40)
== END | disposition home or self-care (01) ==
LOC: BIMLAB 14:43
PROVIDERS: PCP Internal Medicine; Visit Provider Internal Medicine
DX: Z00.00 Encounter for general adult medical examination without abnormal findings (principal); E03.9 Hypothyroidism, unspecified
CPT/HCPCS: 36415; 80053; 80061; 84443; 85025

== ENCOUNTER → 2023-01-16 | Outpatient (CLI) | payer MEDICAID, SELFPAY ==
--- NOTE | 2023-01-16 14:43 | BI_ITS ---
MAMMOGRAPHY - BILATERAL SCREENING REASON FOR EXAM: Female, 38 years old. Routine annual screening examination. PERTINENT HISTORY: Non-contributory. TECHNIQUE: Digital bilateral breast yanet (3D mammographic acquisition) in the CC and MLO projections. 2-D mediolateral oblique (MLO) and craniocaudad (CC) views of both breasts were obtained. CAD: Full Field Digital Mammography with Computer Added Detection was performed. COMPARISON: None. Baseline examination. FINDINGS: Breast Composition: The breasts are heterogeneously dense, which may obscure small masses. There are no dominant masses or suspicious calcifications. Small benign appearing bilateral axillary. No other significant abnormalities are identified. BI/SCRN MAMM (CAD)W/YANET BILAT IMPRESSION: Negative screening mammogram. Yearly followup mammogram recommended. (A) ASSESSMENT CATEGORY: BIRADS Category 1: Negative. A letter regarding these results will be sent to the patient by the facility within 30 days. Approximately 10% of breast cancers are not detected by mammography. A normal mammogram should not delay biopsy of a clinically suspicious abnormality. [id number] Electronically Signed: Michael Adame MD at 15:36 EDT ,
== END | disposition home or self-care (01) ==
LOC: OPBI 14:42
PROVIDERS: PCP Internal Medicine; Referring Provider Internal Medicine; Visit Provider Internal Medicine
DX: Z12.31 Encounter for screening mammogram for malignant neoplasm of breast (principal)
CPT/HCPCS: 77063; 77067

== ENCOUNTER → 2023-02-21 | Outpatient (CLI) | payer MEDICAID, SELFPAY ==
[2023-02-21 14:55] LABS: Thyroid Stim Hormone (TSH) 4.01 uIU/mL (0.358-3.74)
== END | disposition home or self-care (01) ==
LOC: BIMLAB 08:07
PROVIDERS: PCP Internal Medicine; Referring Provider Internal Medicine; Visit Provider Internal Medicine
DX: E03.9 Hypothyroidism, unspecified (principal)
CPT/HCPCS: 36415; 84443

== ENCOUNTER → 2023-04-01 | Outpatient (CLI) | payer MEDICAID, SELFPAY ==
[2023-04-01 12:58] LABS: Thyroid Stim Hormone (TSH) 0.26 uIU/mL (0.358-3.74)
== END | disposition home or self-care (01) ==
LOC: BIMLAB 08:00
PROVIDERS: PCP Internal Medicine; Referring Provider Internal Medicine; Visit Provider Internal Medicine
DX: E03.9 Hypothyroidism, unspecified (principal)
CPT/HCPCS: 36415; 84443

== ENCOUNTER → 2023-05-21 | Outpatient (CLI) | payer BC, MEDICAID, SELFPAY ==
[2023-05-21 14:31] LABS: Thyroid Stim Hormone (TSH) 1.32 uIU/mL (0.358-3.74)
== END | disposition home or self-care (01) ==
PROVIDERS: PCP Internal Medicine; Referring Provider Internal Medicine; Visit Provider Internal Medicine
DX: E03.9 Hypothyroidism, unspecified (principal)
CPT/HCPCS: 36415; 84443

== ENCOUNTER → 2023-07-17 | Outpatient (CLI) | payer BC, MEDICAID, SELFPAY ==
[2023-07-17 16:29] LABS: Anion Gap 3 (5-15); BUN 19 mg/dL (7-18); BUN/Creat Ratio 21.2 RATIO (10-20); Calcium,Total 9.3 mg/dL (8.5-10.1); Chloride 105 mmol/L (98-107); EST Glomerular Filtration Rate 74 mL/min (>60); Est Glom Filt Rate - Afr Amer 89 mL/min (>60); Glucose 69 mg/dL (74-106); Potassium 3.8 mmol/L (3.5-5.1); Sodium Level 139 mmol/L (136-145)
== END | disposition home or self-care (01) ==
LOC: BIMLAB 13:11
PROVIDERS: PCP Internal Medicine; Visit Provider Internal Medicine
DX: E03.9 Hypothyroidism, unspecified (principal)
CPT/HCPCS: 36415; 80048; 84443

== ENCOUNTER → 2023-09-01 | Outpatient (CLI) | payer BC, MEDICAID, SELFPAY ==
--- OUTSIDE RECORDS SUMMARY | 2023-09-01 08:30 | XMS RPT_ITS | CCD ---
Author Name Unknown Address [address] [place] [address] Organization [facility] Care Team Providers Care Stratigrapher Name Role Phone JAMILA HENDERSON Unavailable Unavailable JAMILA HENDERSON Unavailable Unavailable NO REFERRING DR Unavailable Unavailable JAMILA HENDERSON Unavailable Unavailable Unavailable Primary Care Provider JAMAL Chen Primary Care Unavailable JAMAL HYMAN MD Primary Care Physician [phone] CÉSAR CALVO Attending Unavailable Allergies Allergy Classification Reported Allergen(s) Allergy Type Date of Onset Reaction(s) Facility (4 sources) cortisone; Translations: [CORTISONE] Drug Allergy 09-24-2010 [facility]ository Medications Current Medications Medication Drug Class(es) Dates Sig (Normalized) Sig (Original) cephalexin 500 mg oral capsule (1 source) Cephalosporin Antibacterial Start: 04-06-2023 End: 04-13-2023 cephalexin 500 mg oral capsule Dose : 500 mg = 1 cap(s), Oral, QID, # 28 cap(s), 0 Refill(s) Start Date: 04/06/23 Stop Date: 04/13/23 Status: Ordered ergocalciferol 1.25 mg oral capsule (1 source) Provitamin D2 Compound Start: 03-06-2015 vitamin D (ERGOCALCIFEROL) 04275 UNITS CAPS capsule 0 03/06/2015 Active ibuprofen 600 mg oral tablet (1 source) Nonsteroidal Anti-inflammatory Drug Start: 04-06-2023 ibuprofen 600 mg oral tablet Dose : 600 mg = 1 tab(s), Oral, q8h, # 30 tab(s), 0 Refill(s) Start Date: 04/06/23 Status: Ordered levothyroxine sodium 0.175 mg oral tablet (1 source) l-Thyroxine Start: 02-05-2015 levothyroxine (SYNTHROID) 175 MCG tablet 0 02/05/2015 Active nystatin 100 unt/mg topical powder (1 source) Polyene Antifungal Start: 03-13-2015 nystatin (MYCOSTATIN) 950522 UNIT/GM powder Indications: Candidiasis of breast Apply 2 times daily for 7-10 days 1 Bottle 1 03/13/2015 Active Completed/Discontinued Medications Medication Drug Class(es) Dates Sig (Normalized) Sig (Original) cefdinir 300 mg oral capsule (2 sources) Cephalosporin Antibacterial Start: 12-29-2021 End: 01-05-2022 cefdinir (OMNICEF) capsule 300 mg fluconazole 150 mg oral tablet (1 source) Azole Antifungal Start: 12-29-2021 End: 12-29-2021 fluconazole (DIFLUCAN) tablet 150 mg Problems Active Problems Problem Classification Problem Date Documented Date Episodic/Chronic Fracture of lower limb (1 source) Closed fracture of phalanx of foot; Translations: [Unspecified fracture of unspecified toe(s), initial encounter for closed fracture] Onset: 04-06-2023 Episodic Genitourinary congenital anomalies (1 source) Embryonic cyst of broad ligament; Translations: [EMBRYONIC CYST OF BROAD] Onset: 11-14-2016 Chronic Mycoses (1 source) Candidal vulvovaginitis; Translations: [Candidiasis of vulva and vagina] Episodic Other female genital disorders (1 source) Vaginal discharge; Translations: [Other specified noninflammatory disorders of vagina] Episodic Other nutritional; endocrine; and metabolic disorders (1 source) Obesity, unspecified; Translations: [OBESITY UNSPECIFIED] Onset: 11-14-2016 Chronic Other nutritional; endocrine; and metabolic disorders (1 source) Body mass index 40+ - severely obese; Translations: [Morbid (severe) obesity due to excess calories] 03-13-2015 Chronic Prolapse of female genital organs (3 sources) Complete uterovaginal prolapse; Translations: [COMPLETE UTEROVAGINAL DC] Onset: 11-14-2016 Chronic Residual codes; unclassified (2 sources) Other hypersomnia; Translations: [Other hypersomnia] Onset: 05-20-2023 Chronic Residual codes; unclassified (2 sources) Inadequate sleep hygiene; Translations: [Inadequate sleep hygiene] Onset: 05-20-2023 Episodic Thyroid disorders (1 source) Hypothyroidism, unspecified; Translations: [HYPOTHYROIDISM UNSPECIFI] Onset: 11-14-2016 Chronic Unclassified (1 source) Body mass index (BMI) 39.0-39.9, adult; Translations: [BODY MASS INDEX BMI 39.0] Onset: 11-14-2016 Chronic Urinary tract infections (1 source) Acute cystitis; Translations: [Acute cystitis with hematuria] Episodic Past or Other Problems Problem Classification Problem Date Documented Date Episodic/Chronic Inflammatory diseases of female pelvic organs (1 source) Inflammatory disease of cervix uteri; Translations: [INFLAMMATORY DISEASE CER] Onset: 11-14-2016 Episodic Other female genital disorders (1 source) Other noninflammatory disorders of ovary, fallopian tube and broad ligament; Translations: [OTH NONINFL D/O OVARY TU] Onset: 11-14-2016 Episodic Screening or history of mental health and substance abuse (1 source) Personal history of nicotine dependence; Translations: [PERSONAL HISTORY OF DENISE] Onset: 11-14-2016 Episodic Results Test Name Value Interpretation Reference Range Facil ity Vital Signs Date Time Vital Sign Value Performing Clinician Faci lity 04-06-2023 16:20-0400 Blood Pressure Cuff Size BARRETT HUGHES MD [facility] 04-06-2023 16:20-0400 Blood Pressure Location BARRETT HUGHES MD [facility] 04-06-2023 16:20-0400 Blood Pressure Method BARRETT HUGHES MD [facility] 04-06-2023 16:20-0400 Body temperature 98.6 [degF] BARRETT HUGHES MD [facility] 04-06-2023 16:20-0400 Diastolic Blood Pressure Non-Invasive 70 1 BARRETT HUGHES MD [facility] 04-06-2023 16:20-0400 Heart rate 88 /min BARRETT HUGHES MD [facility] 04-06-2023 16:20-0400 Respiratory rate 18 /min BARRETT HUGHES MD [facility] 04-06-2023 16:20-0400 Systolic Blood Pressure Non-Invasive 115 1 BARRETT HUGHES MD [facility] 12-29-2021 21:35-0400 Body temperature 98.4 [degF] Santiago Perez MD Work Phone: [facility] 12-29-2021 21:35-0400 Diastolic blood pressure 82 mm[Hg] Santiago Perez MD Work Phone: [facility] 12-29-2021 21:35-0400 Heart rate 93 /min Santiago Perez MD Work Phone: [facility] 12-29-2021 21:35-0400 Respiratory rate 16 /min Santiago Perez MD Work Phone: [facility] 12-29-2021 21:35-0400 SaO2% (BldA) [Mass fraction] 100 % Santiago Perez MD Work Phone: [facility] 12-29-2021 21:35-0400 Systolic blood pressure 133 mm[Hg] Santiago Perez MD Work Phone: [facility] Encounters Encounter Date Encounter Type Care Provider Facility Start: 05-20-2023 End: 05-21-2023 ambulatory [facility] Start: 04-06-2023 End: 04-06-2023 Emergency department patient visit BARRETT HUGHES MD [facility] Start: 02-20-2023 End: 02-20-2023 ambulatory JAMAL HYMAN Facility:[facility] Start: 12-29-2021 End: 12-29-2021 Emergency department patient visit Santiago Perez MD Work Phone: [facility] ED Procedures Date Procedure Procedure Detail Performing Clinician Start: 12-29-2021 Urnls dip stick/tabl et rgnt auto w/o microscopy Santiago Perez MD Work Phone: Start: 11-14-2016 COLPOPEXY EXTRAPERITONEA JAMILA HENDERSON Start: 11-14-2016 REPAIR OF VAGINA JAMILA Stevens [facility] Start: 11-14-2016 VAG HYST INCLUDING T/O JAMILA HENDERSON Plan of Treatment Date Care Activity Detail Author Start: 07-22-2024 DTaP/Tdap/Td vaccine (3 - Td or Tdap) DTaP/Tdap/Td vaccine (3 - Td or Tdap) [facility] Start: 04-04-2022 Influenza vaccination Flu vacc ine (Season Ended) [facility] Start: 2013 Screening for malign ant neoplasm of cervix [facility] Start: 01-03-2004 Screening for malign ant neoplasm of cervix Pap smear [facility] Start: 2001 Hepatitis C screening Hepatitis C sc reen [facility] Start: 1998 HIV screening HIV screen [facility] Start: 1995 Depression Screen Depression Screen [facility] Start: 01-03-1988 COVID-19 Vaccine (1) COVID-19 Vaccin e (1) [facility] Start: 01-03-1984 Varicella vaccine (1 of 2 - 2-dose childhood series) Varicella vaccine (1 of 2 - 2-dose childhood series) [facility] End: 12-29-2021 Add On Lab Test Add On Lab Test Lab STAT One Time for 1 Occurrences starting 12/29/2021 until 12/29/2021 [facility] Work Phone: Payers Date Payer Category Payer Unknown [id number] 2022 Medicaid [id number] 2015 Unknown [id number] 1985 Unknown [id number] Social History Date Type Detail Facility Start: 03-09-2015 Tobacco smoking stat us SCIS Never smoked tobacco [facility] Work Phone: Start: 03-09-2015 Tobacco use and exposure Smokeless tobacco non-user [facility] Work Phone: Start: 12-29-2021 Alcohol intake 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) [facility] Work Phone: Start: 12-29-2021 Alcohol intake [facility] Work Phone: Start: 1985 Sex Assigned At Not on file [facility] Work Phone: Start: 12-19-2021 End: 12-29-2021 Exposure to SARS-CoV-2 (event) Not sure [facility] Tobacco smoking status No Smokin g Status Entered [facility] Sex Assigned At Female [facility] Functional Status Date Assessment Result Facility 04-06-2023 Functional Status Independent [facility] 04-06-2023 Functional Status Ambulation in [facility] Mental Status Date Assessment Result Facility 04-06-2023 Mental Status Orientation Oriented x 4 [facility] 04-06-2023 Mental Status [facility] Discharge instructions 04-06-2023 Note Date & Type Note Facility 04-06-2023 Hospital Discharg e instructions Patient Education 04/06/2023 16:55:27 Fracture, Foot Foot Fracture You have a broken bone (fracture) in your foot. This will cause pain, swelling, and often bruising. It will usually take about 4 to 8 weeks to heal. A foot fracture may be treated with a special shoe, splint, cast, or boot. Home care Follow these guidelines when caring for yourself at home: You may be given a splint, cast, shoe, or boot to keep the injured area from moving. Unless you were told otherwise, use crutches or a walker. Don t put weight on the injured foot until your health care provider says you can do so. (You can rent crutches and a walker at many pharmacies and surgical or orthopedic supply stores.) Don t put weight on a splint, or it will break. Keep your leg elevated to reduce pain and swelling. When sleeping, put a pillow under the injured leg. When sitting, support the injured leg so it is above your waist. This is very important during the first 2 days (48 hours). Put an ice pack on the injured area. Do this for 20 minutes every 1 to 2 hours the first day for pain relief. You can make an ice pack by wrapping a plastic bag of ice cubes in a thin towel. As the ice melts, be careful that the splint, cast, boot, or shoe doesn t get wet. You can place the ice pack directly over the splint or cast. Unless told otherwise, you can open the boot or shoe to apply the ice pack. Continue using the ice pack 3 to 4 times a day for the next 2 days. Then use the ice pack as needed to ease pain and swelling. Keep the splint, cast, boot, or shoe dry. When bathing, protect it with a large plastic bag, rubber-banded at the top end. If a fiberglass splint or cast or boot gets wet, you can dry it with a hairspring inspector. Unless told otherwise, you can take off the boot or shoe to bathe. You may use acetaminophen or ibuprofen to control pain, unless another pain medicine was prescribed. If you have chronic liver or kidney disease, talk with your healthcare provider before using these medicines. Also talk with your provider if you ve had a stomach ulcer or gastrointestinal bleeding. Don t put creams or objects under the cast if you have itching. Follow-up care Follow up with your healthcare provider, or as advised. This is to make sure the bone is healing the way it should. If you were given a splint, it may be changed to a cast or boot at your follow-up visit. X-rays may be taken. You will be told of any new findings that may affect your care. When to seek medical advice Call your healthcare provider right away if any of these occur: The cast or splint cracks The plaster cast or splint becomes wet or soft The fiberglass cast or splint stays wet for more than 24 hours Bad odor from the cast or wound fluid stains the cast Tightness or pain under the cast or splint gets worse Toes become swollen, cold, blue, numb, or tingly You can t move your toes Skin around cast or splint becomes red Fever of 100.4 F (38 C) or higher, or as directed by your healthcare provider [id number] The [employer]. [address] [place] [address], [place] [address]. All rights reserved. This information is not intended as a substitute for professional medical care. Always follow your healthcare professional's instructions. Follow Up Care 04/06/2023 16:09:18 With:JAMAL HYMAN MD Address: [place] [address]- [phone] When:3-5 days [facility] Discharge summary 04-06-2023 Note Date & Type Note Facility 04-06-2023 Emergency department Discharge summary Discharge Instructions Thank you for allowing [facility] to assist you with your healthcare needs. The following is important discharge information regarding your hospital visit. Diagnosis from Today's Visit Fracture of toe Toe pain-swelling What to Do Next Instructions from Your Care Team Discharge Home Equipment - Ordered -- Post-op shoe, 1 month(s), 04/06/23 16:52:00 EDT Discharge Return to Work, School, or Sports (Return to Work, School, or Sports) - Ordered -- 04/07/23, 04/09/23, May return to: work, 04/06/23 16:53:00 EDT Post Acute Orders No qualifying data available. You Need to Schedule the Following Appointments Follow Up with JAMAL HYMAN MD When Within 3-5 days [facility] [place] [address]- [phone] Allergies NKA Medications Please ask your primary doctor or pharmacist before taking any other medication not listed, including over the counter drugs, herbal medications, vitamins and or supplements as they may interact with your home medications. What How Much When Instructions Last Dose New cephalexin (cephalexin 500 mg oral capsule) 1 cap by mouth Four (4) times a day Duration: 7 Days Printed Prescription New ibuprofen (ibuprofen 600 mg oral tablet) 1 tab(s) by mouth Every 8 hours Printed Prescription Please take this list to your next doctor s visit. Bring all medications you take, including over the counter medications, herbals and other supplements with you to your doctor s visit. Patients and families are reminded to discard old lists and to update any records with all medication providers or retail pharmacies. Education Materials Foot Fracture You have a broken bone (fracture) in your foot. This will cause pain, swelling, and often bruising. It will usually take about 4 to 8 weeks to heal. A foot fracture may be treated with a special shoe, splint, cast, or boot. Home care Follow these guidelines when caring for yourself at home: You may be given a splint, cast, shoe, or boot to keep the injured area from moving. Unless you were told otherwise, use crutches or a walker. Don t put weight on the injured foot until your health care provider says you can do so. (You can rent crutches and a walker at many pharmacies and surgical or orthopedic supply stores.) Don t put weight on a splint, or it will break. Keep your leg elevated to reduce pain and swelling. When sleeping, put a pillow under the injured leg. When sitting, support the injured leg so it is above your waist. This is very important during the first 2 days (48 hours). Put an ice pack on the injured area. Do this for 20 minutes every 1 to 2 hours the first day for pain relief. You can make an ice pack by wrapping a plastic bag of ice cubes in a thin towel. As the ice melts, be careful that the splint, cast, boot, or shoe doesn t get wet. You can place the ice pack directly over the splint or cast. Unless told otherwise, you can open the boot or shoe to apply the ice pack. Continue using the ice pack 3 to 4 times a day for the next 2 days. Then use the ice pack as needed to ease pain and swelling. Keep the splint, cast, boot, or shoe dry. When bathing, protect it with a large plastic bag, rubber-banded at the top end. If a fiberglass splint or cast or boot gets wet, you can dry it with a hairspring inspector. Unless told otherwise, you can take off the boot or shoe to bathe. You may use acetaminophen or ibuprofen to control pain, unless another pain medicine was prescribed. If you have chronic liver or kidney disease, talk with your healthcare provider before using these medicines. Also talk with your provider if you ve had a stomach ulcer or gastrointestinal bleeding. Don t put creams or objects under the cast if you have itching. Follow-up care Follow up with your healthcare provider, or as advised. This is to make sure the bone is healing the way it should. If you were given a splint, it may be changed to a cast or boot at your follow-up visit. X-rays may be taken. You will be told of any new findings that may affect your care. When to seek medical advice Call your healthcare provider right away if any of these occur: The cast or splint cracks The plaster cast or splint becomes wet or soft The fiberglass cast or splint stays wet for more than 24 hours Bad odor from the cast or wound fluid stains the cast Tightness or pain under the cast or splint gets worse Toes become swollen, cold, blue, numb, or tingly You can t move your toes Skin around cast or splint becomes red Fever of 100.4 F (38 C) or higher, or as directed by your healthcare provider [id number] The [employer]. [address] [place] [address]. All rights reserved. This information is not intended as a substitute for professional medical care. Always follow your healthcare professional's instructions. Additional Information VACCINATE! IT SAVES LIVES! Members of the community who have not yet received the COVID-19 vaccine and would like to receive it can visit one of [facility] vaccine clinics. There are many vaccine clinic locations within the [facility]. For locations and available times, please visit [email or web address] It is important to note that some COVID mobile vaccine clinics are held outdoors and may be canceled in rainy or stormy conditions. To learn more about pediatric vaccinations (ages 5-11), we invite you to visit the [facility] webpage. [email or web address] [email or web address] To learn more about the COVID-19 vaccine, we invite you to visit the CDC website for a list of frequently asked questions. https://www.cdc.gov/coronavirus/2 019-ncov/vaccines/faq.html [facility] Patient Portal Access Instructions: Stay connected with your healthcare team and access your personal medical information anytime with the [facility] Patient Portal. If you would like a full copy of your medical records please contact the [facility] Medical Records Department Friday through Friday between 8a.m. and 4:30p.m. Please follow the directions below to access the portal: 1.Access the email account you provided upon registration to the [facility].2.Look for an invitation email from [facility].3.Open the email and access the invitation link: Accept Invitation to [facility]4.Fill in the required johnson to create your account. Sign into [email or web address] with your username and password that you created in the above steps to stay up to date. You can then view a summary of results, a summary of your visits, and the ability to download your summaries to your computer or send the information securely to a physician. Remember that your healthcare information is confidential, so carefully consider who you will allow to register on the [facility] Patient Portal for access to your information. You can also access the [facility] Patient Portal on the [employer]. Simply click on Health Records under Health Data and then click on the [facility] logo. HOW TO SAFELY DISPOSE OF PRESCRIPTION MEDICATIONS Please use one of the following methods to safely dispose of your unused medications. 1.Use a drug disposal kit: the drug disposal pouch allows you to safely discard your old and unused drugs. Ask your nurse to give you one when you are discharged.2.Visit a local take-back location: Many local pharmacies and police departments have programs that collect old and unwanted prescription drugs. Call your local pharmacy or go to http://Smava.Faraday/2R8Ij9r to find one close to you.3.Make use of household items: Use cat litter or old coffee grounds to dispose medications if other options are not available. Mix your drugs with these household products, seal them in an airtight container and throw it into the garbage. Call [facility]: [phone] to be sure your drugs can be disposed of in this way. Some medicines may require a different approach.4.Never flush your medications down the toilet. IF YOU HAVE BEEN PRESCRIBED AN OPIOIDS FOR PAIN If you have been prescribed an opioid (such as hydrocodone, oxycodone or morphine), it is critical to understand the possible side effects and risks of opioid pain medications. Even when taken as directed, opioids can have several side effects including: Tolerance, meaning you might need to take more of a medication for the same pain relief. Nausea, vomiting and/or constipation. Sleepiness, dizziness, dry mouth, confusion, depression or itching. Physical dependence, meaning you have withdrawal symptoms when a medication is stopped ? this can develop within a few days. KNOW YOUR RESPONSIBILITIES It is important to know exactly how much and how often to take the opioid pain medications you are prescribed. Never take opioids in higher amounts or more often than prescribed. Do not combine opioids with alcohol or other drugs that cause drowsiness, such as benzodiazepines, also known as benzos, including diazepam and alprazolam, muscle relaxants or sleep aids. Never sell or share prescription opioids. This is illegal. Store opioids in a secure place and out of reach of others (including children, family, friends and visitors). The last page(s) of this document has been signed and retained as a CHART COPY Signatures Patient Education Materials Fracture, Foot Medication Leaflets My discharge plan and instructions have been reviewed and explained to me and I,SAUL COKER understand my current condition and have read and understand these discharge instructions. I have received a written copy of the plan/instructions. If I have questions, I am aware that I should contact my doctor. 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 HISTORY: ORDERING SYSTEM PROVIDED HISTORY: Reason for Exam: pain FINDINGS: There is a comminuted mildly displaced oblique fracture to the shaft of the 2nd digit distal phalanx calcific densities about the fracture could represent fragments or healing. Recommend clinical correlation for chronicity. IMPRESSION: Oblique mildly displaced fracture through the shaft of the 2nd digit distal phalanx. Clinically correlate for chronicity as adjacent calcific densities could represent healing changes versus additional fragments. Interpreted by: Christophe Donaldson Preliminary Report By: Christophe Donaldson Electronically signed By Christophe Donaldson Dictated Date: 04/06/2023 5:22:58 PM Prelim Date: 04/06/2023 5:25:27 PM Sign Date: 04/06/2023 5:25:27 PM Ordering Provider: [facility] Progress note 02-20-2023 Note Date & Type Note Facility 02-20-2023 Note HNO ID: [id number] Author: Naina Poole APRN.J2EE ARCHITECT Service: ? Author Type: Nurse Practitioner Type: Progress Notes Filed: 02/20/2023 10:14 AM Note Text: Subjective Female with complaints of rash on right sided neck. Patient says it is blistery. Patient denies any itching or pain associated with it. Patient says she has a slight headache. Patient denies any changes in soaps lotions or anything that would cause it. The history is provided by the patient. No under water assistant was used. Rash Review of Systems Constitutional: Negative. Skin: Positive for rash. Objective Physical Exam Constitutional: Appearance: Normal appearance. Pulmonary: Effort: Pulmonary effort is normal. Skin: Comments: Patient has vesicular rash in the area located above. Neurological: Mental Status: She is alert. PAST MEDICAL HISTORY Diagnosis Date Hypothyroid PAST SURGICAL HISTORY Procedure Laterality Date HYSTERECTOMY HX 11/14/2016 Vielka Stuart - Dr. Jamila Henderson PAST SURGICAL HISTORY OF mole remove from back - skin at the age of 11y ALLERGIES Cortisone MEDICATIONS levothyroxine (SYNTHROID) 125 mcg tablet take 1 tablet by mouth once daily Cholecalciferol, Vitamin D3, (VITAMIN D-3) 50 mcg (2,000 unit) cap Take 1 capsule by mouth once daily. valACYclovir (VALTREX) 1 gram Take 1 tablet by mouth three times daily for 7 days. FAMILY HISTORY Problem Relation Age of Onset Diabetes Maternal Grandfather Diabetes Maternal Grandmother Thyroid Mother Ischemic Heart Disease Maternal Grandfather Hypertension Maternal Grandfather Hypertension Maternal Grandmother Arthritis Paternal Grandmother Social History Tobacco Use Smoking status: Never Smokeless tobacco: Never Substance Use Topics Alcohol use: Yes Comment: socially, - not at all Drug use: No ASSESSMENT/PLAN: 1. Rash - ICD9: 782.1, ICD10: R21 - VALACYCLOVIR 1 GRAM TABLET - HSV1,2/VZV NAAT LESION Patient was started on Valtrex if results are negative patient should stop taking Valtrex. If symptoms are persistent patient should follow-up with dermatology. Patient was okay with this care plan. Naina Poole APRN.[facility] Discharge instructions 12-29-2021 InstructionsAttachments Note Date & Type Note Facility 12-29-2021 Hospital Discharg e instructions Santiago Perez MD - 12/29/2021 Please return to the Emergency Department immediately for new or worsening symptoms or any new concerns. Please follow-up with ORGANIZATIONAL EFFECTIVENESS CONSULTANT within the next [3-5] days, follow-up is required. Please follow-up with your [primary care doctor] in the next [5 to 7] days If you test positive for STD, please abstain from sexual intercourse for the next 2 weeks. If you have tested positive for a sexually transmitted disease, please inform any recent sexual partners and recommend they be evaluated and/or treated. The following attachments cannot be sent through Care Everywhere.Vaginal Yeast Infection (Kinyarwanda)documented in this encounter [id number] Work Phone: Evaluation + Plan note Note Date & Type Note Facility Evaluation + Plan note No data available for this section [facility] Evaluation note Note Date & Type Note Facility documented in this encounter [facility] Work Phone: Summary Purpose Family History No Family History Records FoundNo Family History Records FoundNo Family History Records Found No data available for this section No Family History Records Found Advance Directives No Advanced Directives Records FoundDocuments on File Type Date Recorded 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 ACP-Advance Directive ACP-Power of Milling Machine Tender Reason for Referral Specialty Diagnoses / Procedures Referred By Richar t Referred To Contact Barley Steeper / Obstetrics and Gynecology Diagnoses Candidal vulvovaginitis Vaginal discharge Santiago Perez MD [address] [place] [address] [employer] 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 [address] [place] [address] Referral ID Status Reason Start Date Expiration Date V isits Requested Visits Authorized [id number] Open Specialty Services Required 12/29/2021 12/29/2022 1 1 Scheduling Instructions [facility] [address] [place] [address] Additional Source Comments INFORMATION SOURCE (unrecogn ized section and content) DATE CREATED AUTHOR AUTHOR'S ORGANIZ ATION 01/01/2022 [facility] DATE CREATED AUTHOR AUTHOR'S ORGANIZ ATION 02/22/2023 [facility] DATE CREATED AUTHOR AUTHOR'S ORGANIZ ATION 05/25/2023 [facility] Reason for Visit (unrecogniz ed section and content) Ordered Prescriptions (unrec ognized section and content) Scheduled Active and Recently Administ ered Medications (unrecognized section and content) Patient Care team informatio n (unrecognized section and content) Care Team Personnel Name: JAMAL HYMAN MD Member Role: Primary Care Physician Address: Address: [address] [place] [phone]- [place] Name: BARRETT HUGHES MD Position: ED Physician Member Role: ED Physician Address: Address: [address] [place] [phone]- [place] Name: Christophe Man HEARTH FEEDER Position: ED HEARTH FEEDER/CLS/MEDIC Member Role: ED HEARTH FEEDER Care Team Related Persons Name: ROBERTO URBINA FOR RECORDS PERTAINING TO PATIENTS WHO ARE OR HAVE BEEN ENROLLED IN A CHEMICAL DEPENDENCY/SUBSTANCEABUSE PROGRAM, SOME INFORMATION MAY BE OMITTED. This clinical summary was aggregated from multiple sources. Caution should be exercised in using it in the provision of clinical care. This summary normalizes information from multiple sources, and as a consequence, information in this document may materially change the coding, format and clinical context of patient data. In addition, data may be omitted in some cases. CLINICAL DECISIONS SHOULD BE BASED ON THE PRIMARY CLINICAL RECORDS. [facility] [employer] [facility]. provides no warranty or guarantee of the accuracy or completeness of information in this document.
[2023-09-01 13:14] LABS: Thyroid Stim Hormone (TSH) 1.11 uIU/mL (0.358-3.74)
== END | disposition home or self-care (01) ==
LOC: BIMLAB 08:02
PROVIDERS: PCP Internal Medicine; Referring Provider Internal Medicine; Visit Provider Internal Medicine
DX: E03.9 Hypothyroidism, unspecified (principal)
CPT/HCPCS: 36415; 84443